=== PATIENT | female | born 1945 | race Caucasian/White ===

== ENCOUNTER → 2018-06-14 | Outpatient (REF) | payer MEDICARE | END | disposition home or self-care (01) | LOC: DI 12:07 | PROVIDERS: ATTEND Internal Medicine | DX: R05 Cough (principal) ==

== ENCOUNTER 2018-08-17 04:31 | Observation (INO) | payer MEDICARE ==
[~2018-08-17] VITALS: Ht 167.6 cm; Wt 80.6 kg
--- NOTE | 2018-08-17 04:33 | NUR ---
PT WHEELED STRAIGHT BACK TO ROOM 12 AND TRIAGED.
--- NOTE | 2018-08-17 04:55 | NUR ---
PT ALSO HAD ABDOMINAL PAIN WHICH STARTED YESTERDAY MORNING. PT HAS LONG HISTORY OF COLITIS AND IBS.
[2018-08-17 05:11] LABS: HEMATOCRIT 42.9 % (37.0-47.0); HEMOGLOBIN 14.4 g/dl (12.0-16.0); IMMATURE GRANULOCYTES 0.3 % (0.0-5.0); MEAN CELL VOLUME 93.9 fL CALC (80.0-100.0); MEAN CORPUSCULAR HGB 31.5 pG CALC (26.0-32.0); MEAN CORPUSCULAR HGB CONC 33.6 g/L CALC (32.0-36.0); NEUT# 4.04 thou/uL (2.00-7.15); RED BLOOD COUNT 4.57 mill/uL (4.20-5.60); RED CELL DISTRI WIDTH 13.4 % (11.5-15.5)
[2018-08-17 05:28] LABS: AMYLASE 51 u/l (30-110); LIPASE 80 u/l (23-300)
[2018-08-17 05:30] LABS: ALBUMIN 4.6 g/dL (3.2-5.0); ALKALINE PHOSPHATASE 114 u/l (38-126); ANION GAP 13 (6-22 (CALC)); BILIRUBIN, TOTAL 0.8 mg/dL (0.0-1.4); BUN 12 mg/dL (8-23); BUN/CREATININE RATIO 16 (12-20 (CALC)); CARBON DIOXIDE 26 mmol/l (22-30); CHLORIDE 106 mmol/l (95-108); CREATININE 0.8 mg/dL (0.5-1.0); GFR > 60 ML/MIN (>=60 (CALC)); GFR FOR AFR.AMER. > 60 ML/MIN (>=60 (CALC)); POTASSIUM 4.1 mmol/l (3.5-5.1); SGOT/AST 36 u/l (9-36); SODIUM 141 mmol/l (137-146); TOTAL PROTEIN 7.7 g/dL (6.3-8.2)
[2018-08-17 05:41] LABS: MYOGLOBIN 34 ng/mL (0 - 62)
--- NOTE | 2018-08-17 05:46 | NUR ---
PT STATES RELEIF OF CHEST PAIN BUT STOMACH STILL NOT RIGHT. DENIES NAUSEA.
--- NOTE | 2018-08-17 06:58 | NUR ---
REPORT TO DOMINIC MALDONADO
--- NOTE | 2018-08-17 07:11 | NUR ---
PT ADVISED OF CURRENT POC. IV SITE HEALTHY. PO ASA GIVEN. DENIES PAIN.
--- NOTE | 2018-08-17 08:11 | NUR ---
REPORT PROVIDED TO NURSE BUD, ON [facility].
--- NOTE | 2018-08-17 08:14 | NUR ---
REPORT CALLED TO BUD NURSE, ON [facility].
[2018-08-17] MEDS ORDERED: LOSARTAN POT25 MG PO (08:15)
[2018-08-17] MEDS ORDERED: ZOCOR20 M1 PO (08:15)
[2018-08-17] MEDS ORDERED: BUDESONIDE1 MG/2 ML PO (08:17)
[2018-08-17] MEDS ORDERED: ASPIRIN EC LOW81 MG PO (08:18)
--- NOTE | 2018-08-17 08:19 | NUR ---
CONSULT FOR RX TO CLARIFY MED.
--- NOTE | 2018-08-17 08:19 | NUR ---
PT TO [facility] IN STABLE CONDITION IV SITE HEALTHY. BP 126/58. TELEMETRY IN PLACE
[2018-08-17 08:33] VITALS: BP 159/67
--- NOTE | 2018-08-17 08:39 | NUR ---
PT ARRIVED FROM ER VIA STRETCHER AMBUALATED TO THE BED WITHOUT DIFFICULTY. IV SITE AND TELE MONITOR IN PLACE
--- NOTE | 2018-08-17 10:00 | NUR ---
ASSESSMENT IS COMPLETED: IV SITE IS FREE FROM REDNESS OR EDEMA. HR IS REG,PULSES ARE STRONG X4, ABD IS SOFT WITH ACTIVE BS. BREATH SOUNDS ARE CLEAR,BILATERALLY. TELE MONITOR IN PLACE
[2018-08-17 11:08] VITALS: BP 129/57
--- NOTE | 2018-08-17 12:40 | NUR ---
PT IS RELAXING IN BED WITH FAMILY AT BEDSIDE. NO DISTRESS NOTED. IV SITE IS FREE FROM REDNESS OR EDEMA.
--- NOTE | 2018-08-17 14:00 | NUR ---
IN TO VISIT WITH PT.
[2018-08-17 15:15] VITALS: BP 136/64
--- NOTE | 2018-08-17 16:25 | NUR ---
PT IS RELAXING IN BED WITH NO DISTRESS NOTED. IV SITE IS FREE FROM REDNESS OR EDMEA.
[2018-08-17 19:20] VITALS: BP 114/67
--- NOTE | 2018-08-17 20:05 | NUR ---
REPORT FROM BUD ARELLANO. PT SITTING UP IN BED. PT DENIES ANY PAIN OR DISCOMFORT. IV SITE APPEARS HEALTHY. NO DISTRESS NOTED. DISCUSSED POC. PT VERBALIZED UNDERSTANDING. CALL LIGHT WITHIN REACH. WILL CONTINUE TO MONITOR.
--- NOTE | 2018-08-17 21:00 | NUR ---
PT MEDICATED FOR BACK PAIN, EXTRA PILLOWS PROVIDED FOR COMFORT AND REPOSITIONING. CALL LIGHT WITHIN REACH. WILL CONTINUE TO MONITOR.
[2018-08-17 23:28] VITALS: BP 98/55
--- NOTE | 2018-08-18 01:26 | NUR ---
PT RESTING IN BED WITH EYES CLOSED. NO S/S OF PAIN OR DISCOMFORT NOTED. CALL LIGHT WITHIN REACH. WILL CONTINUE TO MONITOR.
[2018-08-18 03:47] VITALS: BP 115/65
--- NOTE | 2018-08-18 05:29 | NUR ---
PT RESTING IN BED WITH EYES CLOSED. NO S/S OF DISTRESS NOTED. CALL LIGHT WITHIN REACH. WILL CONTINUE TO MONITOR.
[2018-08-18 07:40] VITALS: BP 145/69
--- NOTE | 2018-08-18 07:40 | NUR ---
ASSESSMENT IS COMPLETED: IV SITE IS FREE FROM REDNESS OR EDEMA. HR IS REG,PULSES ARE STRONG X4, ABD IS SOFT WITH ACTIVE BS. BREATH SOUNDS ARE CLER, BILATERALLY. TELE MONITOR IN PLACE.
--- NOTE | 2018-08-18 10:00 | NUR ---
PT'S HEART RATE WENT UP TO 188 DUE TO PT GOING TO THE BATHROOM. NO PROBLEMS OR PAIN.
--- NOTE | 2018-08-18 10:40 | NUR ---
IN TO VISIT WITH PT
[2018-08-18 11:37] VITALS: BP 143/66
--- NOTE | 2018-08-18 12:15 | NUR ---
PT IS RELAXING IN BED WITH NO DISTRESS NOTED. FAMILY IN THE ROOM.
--- NOTE | 2018-08-18 12:22 | NUR ---
DISCHARGE INSTRUCTIONS GIVEN TO PT AND SPOUSE IV SITE DISCONTINUED CATHETER INTACT.
--- NOTE | 2018-08-18 12:36 | NUR ---
DISCHARGE INSTRUCTIONS GIVEN AND VERBALIZED UNDERSTANDING.
== END 2018-08-18 12:25 | disposition home or self-care (01) ==
LOC: ED 04:31 → ED-I 06:42 → ED 06:58 → MS2 06:59
PROVIDERS: Emergency Medicine; ADMIT Internal Medicine; ATTEND Internal Medicine
DX: R07.89 Other chest pain (principal); I10 Essential (primary) hypertension; K58.9 Irritable bowel syndrome, unspecified; E78.5 Hyperlipidemia, unspecified; R10.32 Left lower quadrant pain
CPT/HCPCS: S0164

== ENCOUNTER 2019-03-06 19:33 | Emergency (ER) | payer MEDICARE ==
[~2019-03-06] VITALS: Ht 167.6 cm; Wt 81.0 kg
[~2019-03-06 19:33] MED LIST: ASPIRIN EC LOW81 MG PO; BUDESONIDE1 MG/2 ML PO; LOSARTAN POT25 MG PO; ZOCOR20 M1 PO
[2019-03-06 20:57] LABS: HEMATOCRIT 41.2 % (37.0-47.0); HEMOGLOBIN 13.6 g/dl (12.0-16.0); IMMATURE GRANULOCYTES 0.6 % (0.0-5.0); MEAN CELL VOLUME 93.6 fL CALC (80.0-100.0); MEAN CORPUSCULAR HGB 30.9 pG CALC (26.0-32.0); NEUT# 11.88 thou/uL (2.00-7.15); RED BLOOD COUNT 4.4 mill/uL (4.20-5.60); RED CELL DISTRI WIDTH 13.3 % (11.5-15.5); URINE BILIRUBIN - DIPSTICK NEGATIVE (NEGATIVE); URINE BLOOD DIPSTICK NEGATIVE (NEGATIVE); URINE COLOR YELLOW; URINE GLUCOSE - DIPSTICK NEGATIVE (NEGATIVE); URINE KETONE NEGATIVE (NEGATIVE); URINE LEUK ESTERASE NEGATIVE (NEGATIVE); URINE NITRITE - DIPSTICK NEGATIVE (Negative); URINE PH 5.5 (4.5-8.0); URINE PROTEIN - DIPSTICK NEGATIVE (NEG-TRACE); URINE SPECIFIC GRAVITY >=1.030; URINE UROBILINOGEN - DIPSTICK 0.2 E.U./dL (0.2)
[2019-03-06 21:17] LABS: ALBUMIN 4.2 g/dL (3.2-5.0); ALKALINE PHOSPHATASE 118 u/l (38-126); BUN 14 mg/dL (8-23); BUN/CREATININE RATIO 18 (12-20 (CALC)); CHLORIDE 107 mmol/l (95-108); CREATININE 0.7 mg/dL (0.5-1.0); GFR > 60 ML/MIN (>=60 (CALC)); GFR FOR AFR.AMER. > 60 ML/MIN (>=60 (CALC)); LIPASE 71 u/l (23-300); POTASSIUM 4.6 mmol/l (3.5-5.1); SGOT/AST 19 u/l (9-36); SODIUM 139 mmol/l (137-146); TOTAL PROTEIN 7.3 g/dL (6.3-8.2)
[2019-03-06 21:22] LABS: ANION GAP 17 (6-22 (CALC)); BILIRUBIN, TOTAL 0.4 mg/dL (0.0-1.4); CARBON DIOXIDE 20 mmol/l (22-30)
[2019-03-06] MEDS ORDERED: TESSALON PERLE100 MG PO (21:34)
[2019-03-06] MEDS ORDERED: PROVENTIL108 MCG/AC IN (21:34)
[2019-03-06] MEDS ORDERED: ZOFRAN4 MG/TAB PO (21:34)
[2019-03-06 21:58] VITALS: BP 157/84
== END 2019-03-06 21:58 | disposition home or self-care (01) ==
LOC: ED 19:33
DX: J45.901 Unspecified asthma with (acute) exacerbation (principal); K58.0 Irritable bowel syndrome with diarrhea; I10 Essential (primary) hypertension

== ENCOUNTER 2019-03-14 08:04 | Emergency (ER) | payer MEDICARE ==
[~2019-03-14] VITALS: Ht 167.6 cm; Wt 81.5 kg
[~2019-03-14 08:04] MED LIST changes: +PROVENTIL108 MCG/AC IN; +TESSALON PERLE100 MG PO; +ZOFRAN4 MG/TAB PO
[2019-03-14] MEDS ORDERED: TRAMADOL HYDROC50 MG PO (09:28)
[2019-03-14 09:50] VITALS: BP 129/61
== END 2019-03-14 09:50 | disposition home or self-care (01) ==
LOC: ED 08:04
DX: S83.91XA Sprain of unspecified site of right knee, initial encounter (principal); I10 Essential (primary) hypertension; X50.0XXA Overexertion from strenuous movement or load, initial encounter
CPT/HCPCS: L1830

== ENCOUNTER 2020-08-15 09:20 | Emergency (ER) | payer MEDICARE ==
[~2020-08-15] VITALS: Ht 167.6 cm; Wt 81.8 kg
[~2020-08-15 09:20] MED LIST changes: +TRAMADOL HYDROC50 MG PO
[2020-08-15] MEDS ORDERED: WELLBUTRIN XL150 MG PO (09:32)
[2020-08-15 10:49] VITALS: BP 126/64
== END 2020-08-15 10:48 | disposition home or self-care (01) ==
LOC: ED 09:20
DX: M25.562 Pain in left knee (principal); I10 Essential (primary) hypertension; W22.03XA Walked into furniture, initial encounter; Y92.009 Unspecified place in unspecified non-institutional (private) residence as the place of occurrence of the external cause

== ENCOUNTER 2020-09-13 12:04 | Emergency (ER) | payer MEDICARE ==
[~2020-09-13] VITALS: Ht 167.6 cm; Wt 81.0 kg
[~2020-09-13 12:04] MED LIST changes: +WELLBUTRIN XL150 MG PO
[2020-09-13] MEDS ORDERED: LOSARTAN POTASS50 MG PO (13:24)
[2020-09-13] MEDS ORDERED: TRAMADOL HYDROC50 M1 PO (15:03)
[2020-09-13] MEDS ORDERED: CYCLOBENZAPR5 MG PO (15:03)
[2020-09-13 15:10] VITALS: BP 157/75
== END 2020-09-13 15:17 | disposition home or self-care (01) ==
LOC: ED 12:04
DX: M54.5 Low back pain (principal); I10 Essential (primary) hypertension; E78.00 Pure hypercholesterolemia, unspecified

== ENCOUNTER → 2020-12-07 | Outpatient (REF) | payer MEDICARE ==
[~2020-12-07] MED LIST changes: +CYCLOBENZAPR5 MG PO; +LOSARTAN POTASS50 MG PO; +TRAMADOL HYDROC50 M1 PO
[2020-12-07 10:45] LABS: ANION GAP 13 (6-22 (CALC)); BUN 10 mg/dL (8-23); BUN/CREATININE RATIO 14 (12-20 (CALC)); CARBON DIOXIDE 25 mmol/l (22-30); CHLORIDE 106 mmol/l (95-108); CREATININE 0.7 mg/dL (0.5-1.0); GFR > 60 ML/MIN (>=60 (CALC)); GFR FOR AFR.AMER. > 60 ML/MIN (>=60 (CALC)); POTASSIUM 4.2 mmol/l (3.5-5.1); SODIUM 139 mmol/l (137-146)
== END | disposition home or self-care (01) ==
LOC: LAB 08:09
PROVIDERS: ATTEND Nurse Practitioner
DX: E87.6 Hypokalemia (principal)

== ENCOUNTER 2021-05-09 07:33 | Observation (INO) | payer MEDICARE ==
[~2021-05-09] VITALS: Ht 167.6 cm; Wt 85.0 kg
--- NOTE | 2021-05-09 07:52 | NUR ---
PATIENT AMBULATED TO ROOM WITH STEADY GAIT AND PHYSICIAN NOTIFIED OF STATUS
[2021-05-09 08:16] LABS: HEMATOCRIT 42.5 % (37.0-47.0); HEMOGLOBIN 13.7 g/dl (12.0-16.0); IMMATURE GRANULOCYTES 0.1 % (0.0-5.0); MEAN CELL VOLUME 97.5 fL CALC (80.0-100.0); MEAN CORPUSCULAR HGB 31.4 pG CALC (26.0-32.0); MEAN CORPUSCULAR HGB CONC 32.2 g/dL CAL (32.0-36.0); NEUT# 6.53 thou/uL (2.00-7.15); RED BLOOD COUNT 4.36 mill/uL (4.20-5.60); RED CELL DISTRI WIDTH 13.2 % (11.5-15.5)
[2021-05-09 08:32] LABS: GFR > 60 ML/MIN (>=60 (CALC)); GFR FOR AFR.AMER. > 60 ML/MIN (>=60 (CALC))
--- NOTE | 2021-05-09 08:40 | NUR ---
Reassessment of patient completed. No distress noted.
[2021-05-09 08:59] LABS: ALBUMIN 3.7 g/dL (3.2-5.0); ALKALINE PHOSPHATASE 116 u/l (38-126); ANION GAP 11 (6-22 (CALC)); BUN 13 mg/dL (8-23); BUN/CREATININE RATIO 16 (12-20 (CALC)); CARBON DIOXIDE 24 mmol/l (22-30); CHLORIDE 107 mmol/l (95-108); CREATININE 0.8 mg/dL (0.5-1.0); GFR > 60 ML/MIN (>=60 (CALC)); GFR FOR AFR.AMER. > 60 ML/MIN (>=60 (CALC)); LIPASE 92 u/l (23-300); POTASSIUM 4.3 mmol/l (3.5-5.1); SGOT/AST 18 u/l (9-36); SODIUM 138 mmol/l (137-146); TOTAL PROTEIN 6.5 g/dL (6.3-8.2)
[2021-05-09 09:06] LABS: BILIRUBIN, TOTAL 0.7 mg/dL (0.0-1.4)
--- NOTE | 2021-05-09 09:14 | NUR ---
Reassessment of patient completed. No distress noted.
[2021-05-09] MEDS ORDERED: LINZESS72 MCG PO (09:37)
--- NOTE | 2021-05-09 10:15 | NUR ---
Reassessment of patient completed. No distress noted.
--- NOTE | 2021-05-09 11:33 | NUR ---
Reassessment of patient completed. No distress noted.
--- NOTE | 2021-05-09 12:31 | NUR ---
REPORT GIVEN TO LORRAINE ON MED SURGE. LORRAINE PICKED UP PATIENT IN WHEELCHAIR AND ESCORTED TO ROOM. PATIENT ALERT AND ORIENTED AND IN NAD. ACCOMPANYING PATIENT.
[2021-05-09 12:35] VITALS: BP 133/60
--- NOTE | 2021-05-09 12:35 | NUR ---
PATIENT TO [facility] ROOM 274 VIA WHEELCHAIR. PATIENT ABLE TO TRANFER SELF TO BED. PATIENT IS ALERT AND ORIENTED X3. ADMISSION ASSESSMENT COMPLETED AT THIS TIME. IV PATENT X1. ORIENTED PATIENT TO ROOM AND UNIT. CALL LIGHT IN REACH. WILL CONTINUE TO MONITOR.
--- NOTE | 2021-05-09 13:10 | NUR ---
REPORT GIVEN TO KENDALL ALFARO.
--- NOTE | 2021-05-09 19:28 | NUR ---
PT RESTING IN BED, WATCHING TV, NO SIGNS OF DISTRESS NOTED, RESP EVEN AND UNLABORED. PT ALERT AND ORIENTED X4, DISCUSSED POC. TEDS IN PLACE, PT C/O NAUSEA AND PAIN, NOTED BS HYPERACTIVE X4, PT DESCRIBES CRAMPING PAIN. SKIN INTACT, ASSESSMENT REVIEW COMPLETED, WILL NOTIFY MD OF PAIN,CALL LIGHT IN REACH,CONTINUE TO MONITOR.
[2021-05-09 20:00] VITALS: BP 123/60
--- NOTE | 2021-05-09 20:07 | NUR ---
MD ENTERED ORDERS VIA CPOE, PT MEDICATED PER MAR, NO SIGNS OF DISTRESS NOTED, RESP EVEN AND UNLABORED. CALL LIGHT IN REACH,CONTINUE TO MONITOR.
--- NOTE | 2021-05-09 21:02 | NUR ---
PT RESTING IN BED, IV ANTIBIOTIC DUE, PT REQUESTING SLEEP AID, MEDICATED PER MAR, CALL LIGHT IN REACH,CONTINUE TO MONITOR.
--- NOTE | 2021-05-10 00:01 | NUR ---
PT RESTING IN BED WITH EYES CLOSED, NO SIGNS OF DISTRESS NOTED, RESP EVEN AND UNLABORED. CALL LIGHT IN REACH,CONTINUE TO MONITOR.
--- NOTE | 2021-05-10 03:53 | NUR ---
PT RETURNED TO BED FROM BATHROOM, NO SIGNS OF DISTRESS NOTED, VOICES NO NEEDS OR COMPLAINTS, CALL LIGHT IN REACH,CONTINUE TO MONITOR.
[2021-05-10 04:00] VITALS: BP 143/61
[2021-05-10 05:57] LABS: MEAN CELL VOLUME 98.6 fL CALC (80.0-100.0); MEAN CORPUSCULAR HGB 31.8 pG CALC (26.0-32.0); MEAN CORPUSCULAR HGB CONC 32.2 g/dL CAL (32.0-36.0); RED BLOOD COUNT 3.62 mill/uL (4.20-5.60); RED CELL DISTRI WIDTH 13.6 % (11.5-15.5)
[2021-05-10 05:58] LABS: HEMOGLOBIN 11.5 g/dl (12.0-16.0)
[2021-05-10 05:59] LABS: HEMATOCRIT 35.7 % (37.0-47.0)
[2021-05-10 06:01] LABS: ANION GAP 8 (6-22 (CALC)); BUN 8 mg/dL (8-23); BUN/CREATININE RATIO 10 (12-20 (CALC)); CARBON DIOXIDE 23 mmol/l (22-30); CHLORIDE 111 mmol/l (95-108); CREATININE 0.8 mg/dL (0.5-1.0); GFR > 60 ML/MIN (>=60 (CALC)); GFR FOR AFR.AMER. > 60 ML/MIN (>=60 (CALC)); MAGNESIUM 1.9 mg/dL (1.6-2.3); POTASSIUM 3.9 mmol/l (3.5-5.1); SODIUM 139 mmol/l (137-146)
--- NOTE | 2021-05-10 08:00 | NUR ---
REPORT RECEIVED FROM EILEEN SAAB. PT AWAKE ALERT AND APPROPRIATE. DENIES PAIN, SOB OR DISCOMFORT. DENIES ANY FURTHER DIARHHEA, IV FLUIDS INFUSING THROUGH PATENT IV SITE. VSS. ASSESSMENT PREFORMED. CALL LIGHT WITHIN REACH, INSTRUCTED PT TO CALL FOR ASSISTANCE, STATES UNDERSTANDING.
[2021-05-10 08:15] VITALS: BP 149/71
[2021-05-10] MEDS ORDERED: CIPROFLOXACN500 MG PO ×2 (09:54→10:28)
[2021-05-10] MEDS ORDERED: METRONIDAZOLE500 MG PO ×2 (09:55→10:28)
--- NOTE | 2021-05-10 11:31 | NUR ---
PT DISCHARGED AT THIS TIME IN STABLE CONDITION, BELONGINGS GATHERED. DISCHARGE INSTRUCTIONS GIVEN. PT STATES UNDERSTANDING OF [facility] PICKUP AT [employer]
== END 2021-05-10 11:21 | disposition home or self-care (01) ==
LOC: ED 07:33 → ED-I 09:02 → ED 09:32 → MS2 09:33
PROVIDERS: Family Medicine; ADMIT Hospitalist; ATTEND Hospitalist
DX: A09 Infectious gastroenteritis and colitis, unspecified (principal); I10 Essential (primary) hypertension; E78.5 Hyperlipidemia, unspecified; K58.9 Irritable bowel syndrome, unspecified; Z88.0 Allergy status to penicillin; Z20.822 Contact with and (suspected) exposure to COVID-19
CPT/HCPCS: Q9967